=== PATIENT | male | born 1965 | race Caucasian/White ===

== ENCOUNTER → 2019-08-25 08:50 | Outpatient (CLI) | payer BC, SELFPAY ==
[2019-08-25 09:57] LABS: Alanine Aminotransferase 34 U/L (12-78); Albumin/Globulin Ratio 1.3 (1.1-1.8); Alkaline Phosphatase 92 U/L (46-116); Anion Gap 11.9 mEq/L (5-15); Aspartate Amino Transferase 17 U/L (15-37); Bilirubin,Total 0.5 mg/dL (0.2-1.0); Blood Urea Nitrogen 13 mg/dL (7-18); Calcium 9.2 mg/dL (8.5-10.1); Carbon Dioxide 30 mmol/L (21.0-32.0); Chloride 103 mmol/L (98-107); Chol/HDL Ratio 3.6 (1-3.5); Cholesterol 167 mg/dL (140-200); Creatinine,Serum 0.99 mg/dL (0.70-1.30); Estimated Glomerular Filt Rate 79 ml/min (>60); GFR (African American) 96 ML/MIN (>60); Globulin 3.2 gm/dl (1.3-3.2); Glucose 104 mg/dL (74-106); HDL Cholesterol 47 mg/dL (27-67); LDL Cholesterol 105 mg/dL (0-130); Potassium 4.9 mmoL/L (3.5-5.1); Sodium 140 mmol/L (136-145); Total Protein,Serum 7.2 gm/dL (6.4-8.2); Triglycerides 75 mg/dL (30-200); VLDL Cholesterol 15 mg/dL (0-40)
== END ==
PROVIDERS: Visit Provider Nurse Practitioner Family
DX: Z00.00 Encounter for general adult medical examination without abnormal findings (principal)
CPT/HCPCS: 36415; 80053; 80061

== ENCOUNTER 2020-07-30 20:49 | Observation (INO) | payer BC, SELFPAY ==
[2020-07-30] VITALS (7 sets, daily range): BP systolic 112–174; BP diastolic 60–89; PULSE 112–175; RESP 14–19; TEMP 36.8; O2SAT 96–99; BMI 32.3
--- NOTE | 2020-07-30 20:43 | ECG_ITS ---
APPROVED REPORT Exam: Resting ECG HR:160 bpm ECG Measurements Heart Rate 160 AXES QRSd 84 QRS 88 QT 272 T -57 QTc 443 Conclusion Atrial fibrillation with rapid ventricular response with premature ventricular or aberrantly conducted complexes T wave abnormality, consider inferior ischemia or digitalis effect Abnormal ECG Electronically signed by : Vernon Quick, 07/31/2020 19:45:43
--- NOTE | 2020-07-30 20:52 | XR_ITS ---
PROCEDURE: XR CHEST 2V CLINICAL HISTORY: palpitations Chest pain COMPARISON: CR CXR CHEST(2 VIEWS-NOT PORTABLE) from 08/25/2016 FINDINGS: The cardiomediastinal silhouette and pulmonary vascularity are within normal limits. The lungs are clear without infiltrates, suspicious nodules, or pleural effusions. Upper thoracic kyphosis with degenerative changes in the thoracic unchanged IMPRESSION: No acute findings. Dictated by: Anthony Hernandez MD 07/31/2020 06:11 Anthony Hernandez MD in [place] 07/31/2020 06:11
[2020-07-30 21:09] LABS: Basophils # 0.4 K/mm3 (0-0.2); Basophils % 2.9 % (0.1-2.0); Eosinophils # 0.1 K/mm3 (0.0-0.4); Eosinophils % 0.9 % (0.1-12.0); Hematocrit 47.5 % (42.0-52.0); Hemoglobin 16.8 g/dL (14.1-18.0); Lymphocytes # 3.2 K/mm3 (0.7-4.5); Lymphocytes % 22.5 % (10-50); Mean Corpuscular HGB Conc 35.5 g/dL (31.8-35.4); Mean Corpuscular Hemoglobin 29.2 pg (27.0-31.2); Mean Corpuscular Volume 82.3 fl (80-94); Mean Platelet Volume 10.5 fl (7.4-10.4); Monocytes # 0.8 K/mm3 (0.1-1.0); Monocytes % 5.7 % (1.7-9.3); Neutrophils # 9.6 K/mm3 (1.8-7.8); Platelet Count 388 K/mm3 (142-424); Red Blood Count 5.77 M/mm3 (4.60-6.20); White Blood Count 14.1 K/mm3 (4.8-10.8)
[2020-07-30 21:13] LABS: Chloride 100 mmol/L (98-107); Potassium 3.9 mmoL/L (3.5-5.1); Sodium 138 mmol/L (136-145)
[2020-07-30 21:16] LABS: Anion Gap 10.9 mEq/L (5-15); Blood Urea Nitrogen 17 mg/dl (9-20); Calcium 9.8 mg/dl (8.4-10.2); Carbon Dioxide 31 mmol/L (22.0-30.0); Creatinine Clearance Estimated 110 mL/min (50-200); Estimated Glomerular Filt Rate 78 ml/min (>60); GFR (African American) 95 ML/MIN (>60); Glucose 133 mg/dl (74-100)
--- NOTE | 2020-07-30 21:27 | HMH.EDARPALP ---
ED Disposition Clinical Impression: Atrial fibrillation with rapid ventricular response, Obesity (BMI 30.0-34.9) Disposition: Admitted As Inpatient Condition on Discharge: Good Referrals: Vernon Quick MD [Primary Care Provider] - - Critical Care Critical Care Time: No Attestation: On 07/30/20, the high probability of a clinically significant, sudden or life threatening deterioration of the following system(s) required my full and direct attention, intervention and personal management. The time I documented below is in addition to time spent performing reported procedures but includes the following listed in this critical care notation. Medical Decision Making - Medical Records Medical records reviewed: Yes: I reviewed the patient's medical records. - Rm Inquiry Pt receiving controlled substance: No Vital Signs: 07/30/20 20:51 07/30/20 21:00 07/30/20 21:30 Temperature 98.2 F Temperature Source Oral Pulse Rate [Apical] 160 H Pulse Rate [Left Radial] 132 H 175 H 160 H Respiratory Rate 18 18 19 Blood Pressure [Right Arm] 174/86 H 170/89 H 142/74 H Blood Pressure Mean [Right Arm] 115 116 96 Blood Pressure Source [Right Arm] Automatic Cuff Automatic Cuff Automatic Cuff Blood Pressure Position [Right Arm] Supine Supine Supine 02 Sat by Pulse Oximetry 99 97 98 Oxygen Delivery Method Room Air Room Air Room Air 07/30/20 22:00 Temperature Temperature Source Pulse Rate [Apical] Pulse Rate [Left Radial] 139 H Respiratory Rate 15 Blood Pressure [Right Arm] 112/77 Blood Pressure Mean [Right Arm] 88 Blood Pressure Source [Right Arm] Automatic Cuff Blood Pressure Position [Right Arm] Supine 02 Sat by Pulse Oximetry 98 Oxygen Delivery Method Room Air - Lab Data Lab results reviewed: Yes: I reviewed the patient's lab results. Lab Results 07/30/20 20:57: WBC 14.1 H, RBC 5.77, Hgb 16.8, Hct 47.5, MCV 82.3, MCH 29.2, MCHC 35.5 H, RDW 15.0, Plt Count 388, MPV 10.5 H, Neut % (Auto) 68.0, Lymph % (Auto) 22.5, [place] % (Auto) 5.7, Eos % (Auto) 0.9, Baso % (Auto) 2.9 H, Neut # (Auto) 9.6 H, Lymph # (Auto) 3.2, [place] # (Auto) 0.8, Eos # (Auto) 0.1, Baso # (Auto) 0.4 H 07/30/20 20:57: Sodium 138, Potassium 3.9, Chloride 100, Carbon Dioxide 31 H, Anion Gap 10.9, BUN 17, Creatinine 1.00, Estimated Creat Clear 110, Estimated GFR 78, Est GFR ( Amer) 95, Glucose 133 H, Calcium 9.8, Troponin I < 0.01, TSH 3.48, Thyroxine (T4) 9.8 Result diagrams: 07/30/20 20:57 07/30/20 20:57 Orders (Tests/Meds): ED MEDICATIONS Generic Name Dose Route Start Last Admin Trade Name Freq PRN Reason Stop Dose Admin Sodium Chloride 1,000 mls @ 999 mls/hr 07/30/20 21:00 07/30/20 21:03 Sod Chlor 0.9% 1000ml Bag IV 07/30/20 22:00 999 mls/hr .Q1H1M BOUBACAR Administration Diltiazem HCl 100 mg/ Sodium 100 mls @ 10 mls/hr 07/30/20 21:51 07/30/20 21:49 Chloride IV 08/29/20 21:50 10 mls/hr .Q10H BOUABCAR Administration Protocol Discontinued Medications Generic Name Dose Route Start Last Admin Trade Name Freq PRN Reason Stop Dose Admin Diltiazem HCl 10 mg 07/30/20 21:34 07/30/20 21:48 Diltiazem 25mg/5ml Vial IV 07/30/20 21:35 10 mg ONCE ONE Administration ORDERS Category Date Time Status Chest XR 2 view (NOT portable) [XR chest 2V] Stat Exams 07/30/20 20:52 Taken Covid-19 IgG/IgM ([facility]) Stat Lab 07/30/20 20:45 Received Troponin I Q3H Lab 07/30/20 23:58 Ordered Troponin I Q3H Lab 07/31/20 02:58 Ordered UA [Urinalysis and Microscopic] Stat Lab 07/30/20 22:26 Ordered UDS [Drug Screen,Urine] Stat Lab 07/30/20 22:26 Ordered - Radiology Data #1 Image(s): Chest Image Reviewed: Yes I reviewed the patient's radiology image Preliminary Findings: Normal/NAD - ECG Data Tracing #1 Arrhythmias present: afib Ischemic changes: non-specific ST-T wave changes - Physician Consults Physician Consulted: alin Reason -: Admission - CONOR Score for Non-Stemi Age of Patie
[2020-07-30 21:33] LABS: Troponin I < 0.01 ng/ml (0.00-0.034)
[2020-07-30 21:34] LABS: T4 (Thyroxine) 9.8 ug/dl (5.53-11.0)
[2020-07-30 21:48] LABS: Thyroid Stimulating Hormone 3.48 uIU/mL (0.465-4.68)
--- NOTE | 2020-07-30 22:38 | PC.NURSE ---
spoke with Dr. Quick, patient to be admitted
[2020-07-30 22:44] LABS: Coronavirus 19 IgG Antibody Negative (Negative); Coronavirus 19 IgM Antibody Negative (Negative)
[2020-07-30 22:44] LABS: Microscopic, Urine URINE MICROSCOPIC (MICROSCOPIC)
[2020-07-30 22:52] LABS: Appearance,Urine CLEAR (Clear); Bilirubin,Urine Negative (Negative); Blood, Urine TRACE-I (Negative); Color,Urine YELLOW (Yellow); Glucose,Urine (UA) Negative (Negative); Ketones,Urine Negative (Negative); Leukocyte Esterase,Urine Negative (Negative); Nitrate,Urine Negative (Negative); Protein,Urine Negative (Negative); Urobilinogen,Urine 0.2 EU/dl (0.2)
[2020-07-30 23:01] LABS: Amorphous Sediment,Urine 1+ /lpf; Bacteria,Urine 1+ /lpf; WBC,Urine Occasional #/hpf (0-3)
[2020-07-30 23:03] LABS: Amphetamine/Metha Screen,Urine Negative ng/ml (<1000)
[2020-07-30 23:04] LABS: Barbiturates Screen,Urine Negative ng/ml (<200); Benzodiazepines Screen,Urine Negative ng/ml (<200)
[2020-07-30 23:05] LABS: Cannabinoid Screen,Urine Negative ng/ml (<50); Cocaine Screen,Urine Negative ng/ml (<300)
[2020-07-30 23:06] LABS: Methadone Screen,Urine Negative ng/ml (<300)
[2020-07-30 23:07] LABS: Opiate Screen,Urine Negative ng/ml (<300)
[2020-07-30 23:08] LABS: Phencyclidine Screen,Urine Negative ng/ml (<25)
--- NOTE | 2020-07-30 23:54 | PC.NURSE ---
Cardizem increased to 15ml/hr at this time
[2020-07-31] VITALS (10 sets, daily range): BP systolic 95–163; BP diastolic 44–97; PULSE 66–97; RESP 13–18; TEMP 36.7–36.8; O2SAT 95–99; BMI 32.7
--- NOTE | 2020-07-31 00:22 | PC.NURSE ---
Lovenox inj confirmed by cristian in pharmacy
[2020-07-31 00:43] LABS: Troponin I < 0.01 ng/ml (0.00-0.034)
--- NOTE | 2020-07-31 00:43 | PC.NURSE ---
pt arrived to floor via wheelchair
--- NOTE | 2020-07-31 01:06 | ECG_ITS ---
APPROVED REPORT Exam: Resting ECG HR:65 bpm ECG Measurements Heart Rate 65 AXES MT 148 P 26 QRSd 72 QRS 52 QT 392 T 61 QTc 407 Conclusion Normal sinus rhythm Normal ECG Electronically signed by : Vernon Quick, 07/31/2020 19:44:43
--- NOTE | 2020-07-31 02:42 | PC.NURSE ---
He is A&Ox4. He reports pain in his elbow but no chest pain. He converted to NSR from afib. He denies SOA and weakness. He ambulated to the bathroom with steady gait. He continues on RA.
[2020-07-31 03:57] LABS: Troponin I < 0.01 ng/ml (0.00-0.034)
[2020-07-31 06:24] LABS: Basophils % 0.5 % (0.1-2.0); Eosinophils # 0.1 K/mm3 (0.0-0.4); Hematocrit 43.3 % (42.0-52.0); Lymphocytes # 2.6 K/mm3 (0.7-4.5); Lymphocytes % 30.5 % (10-50); Mean Corpuscular HGB Conc 32.3 g/dL (31.8-35.4); Mean Corpuscular Volume 86.6 fl (80-94); Mean Platelet Volume 7.5 fl (7.4-10.4); Monocytes # 0.7 K/mm3 (0.1-1.0); Monocytes % 7.6 % (1.7-9.3); Neutrophils # 5.2 K/mm3 (1.8-7.8); Neutrophils % 60.5 % (37.0-80.0); Platelet Count 285 K/mm3 (142-424); Red Cell Distribution Width 12.9 % (11.5-17.5); White Blood Count 8.6 K/mm3 (4.8-10.8)
[2020-07-31 06:41] LABS: Blood Urea Nitrogen 13 mg/dl (9-20); Calcium 8.9 mg/dl (8.4-10.2); Carbon Dioxide 28 mmol/L (22.0-30.0); Chloride 103 mmol/L (98-107); Chol/HDL Ratio 3.7 (1-3.5); Cholesterol 164 mg/dl (140-200); Creatinine Clearance Estimated 123 mL/min (50-200); Estimated Glomerular Filt Rate 88 ml/min (>60); GFR (African American) 107 ML/MIN (>60); Glucose 121 mg/dl (74-100); HDL Cholesterol 44 mg/dl (40-60); Magnesium 2.1 mg/dl (1.6-2.3); Sodium 138 mmol/L (136-145); Triglycerides 82 mg/dl (30-150); VLDL Cholesterol 16 mg/dL (0-40)
[2020-07-31 06:52] LABS: Direct LDL Cholesterol 96.36 mg/dL (100-129)
[2020-07-31 07:04] LABS: INR 1.08 (0.9-1.1); Prothrombin Time 11.9 seconds (9.4-11.8)
--- NOTE | 2020-07-31 07:54 | P.CONPHA_ITS ---
[facility] Pharmacy VTE Monitoring - Patient Demographics Admission date: 07/30/20 Report Date: 07/31/20 Time: 07:54 Allergies/Adverse Reactions: Patient Allergies guaifenesin [From MUCINEX] Allergy (Unknown, Verified 07/31/20 01:27) pseudoephedrine [From SUDAFED] Allergy (Unknown, Verified 07/31/20 01:27) Height: 1.68 m Weight: 91.881 kg Patient Problems: Current Active Problems Atrial fibrillation with rapid ventricular response (Acute) Obesity (BMI 30.0-34.9) (Acute) - VTE Risk Labs: VTE Related Lab Results Hgb 14.0 g/dL (14.1-18.0) L D 07/31/20 05:30 Hct 43.3 % (42.0-52.0) 07/31/20 05:30 Plt Count 285 K/mm3 (142-424) D 07/31/20 05:30 PT 11.9 seconds (9.4-11.8) H 07/31/20 05:30 INR 1.08 (0.9-1.1) 07/31/20 05:30 BUN 13 mg/dl (9-20) 07/31/20 05:30 Creatinine 0.90 mg/dl (0.66-1.25) 07/31/20 05:30 Estimated Creat Clear 123 mL/min (50-200) 07/31/20 05:30 VTE Score: 1 VTE Risk Level: Very Low Risk - Prophylaxis VTE Prophylaxis Ordered?: Yes Types of VTE Prophylaxis: TEDS Knee High Location of Applied Device: Bilateral Lower Extremeties
--- NOTE | 2020-07-31 08:00 | CA_ITS ---
APPROVED REPORT EXAM: Comprehensive 2D, Doppler, and color-flow Echocardiogram It Auditor: Johanna Zavaleta RVT Ht: 5 ft 6 in Wt: 200lbs BSA: 2.00 BP: 142/74 mmHg Indications: A-FIB,PALPS 2D Dimensions LVOT 1.77 cm (M/F) 1.5-2.5 M-Mode Dimensions RVDd 2.43 cm (0.9-2.6) LA Diam 3.62 cm (1.9-4.0) LVDd 4.33 cm (3.5-5.7) Ao Diam 2.61 cm (2.0-3.7) LVDs 2.36 cm (3.5-5.7) IVSd 1.18 cm (0.6-1.1) PWd 1.29 cm (0.6-1.1) EF (Teich) 77.10% FS 45.50% EDV (Teich) 84.40 mL ESV (Teich) 19.30 mL LV Diastology E Decel Time 150.00 (160-240 msec) E/A Ratio 1.6 MED E' 7.10 (< 7 cm/sec) E'/MED E' Ratio 12.58 (>14) LAT E' 6.60 (<10 cm/sec) E/LAT E' Ratio 13.53 (>14) Mitral Valve MV E Max Jay Jay. 89.00 (40-130 cm/s) MV A Velocity 57.00 (40-130 cm/s) E/A Ratio 1.57 MV Decel. Time 150.00 (160-240 ms) MV PHT 44.00 ms Pulmonary Valve PV Peak Velocity 112.00 (50-150 cm/s) Tricuspid Valve TR P. Velocity 280.00 cm/s Left Ventricle Left atrium is normal size, left ventricle is normal size, there is no concentric left ventricular hypertrophy, visually estimated ejection fraction 55% with no regional wall motion abnormality, diastolic parameters are within normal range. Right Ventricle Right atrium and right ventricle are normal size and contractility. Aortic Valve Aortic valve is minimally thickened and fibrosed, there is no aortic stenosis or aortic insufficiency. Mitral Valve Mitral valve is grossly normal, there is trace mitral regurgitation. Tricuspid Valve Tricuspid valve grossly normal, there is trace tricuspid regurgitation. Pulmonic Valve Pulmonic valve is poorly visualized. Great Vessels Aortic root is normal size. Pericardium No significant pericardial effusion noted. Conclusion 1. Normal left ventricular size, preserved left ventricular systolic function, visually estimated ejection fraction 55% with no regional wall motion abnormality, diastolic parameters are within normal range. 2. Trace mitral and tricuspid regurgitation. 3. No significant pericardial effusion noted. Electronically signed by : Nasim Smith, 07/31/2020 14:53:06
--- NOTE | 2020-07-31 08:30 | HMH.HPDC ---
General - General Admission date:: 07/31/20 Discharge date: 07/31/20 *Admission Date: 07/30/20 *Chief complaint: Rapid heart rate *History of present illness: 55-year-old white man with essentially negative past medical history who over the past 3 or 4 weeks has had spells of rapid heart rate and palpitations which resolved spontaneously. Yesterday evening he had another spell that lasted quite a long time and did not resolve spontaneously, came to the emergency department where he was found to be in atrial fibrillation with rapid ventricular response. Did not respond to initial Cardizem bolus and was placed on Cardizem drip and transferred to the special care unit for monitoring and further evaluation. Patient denies any recent chest pain, reduction in activity, denies leg swelling or syncopal episodes. Negative family history of cardiac disease. Denies alcohol use, denies stimulant use, OTC cold medicine use or other substance use. [facility] History I have reviewed the patient's past medical history: Yes Medical History: Denies:: Cancer, Diabetes Mellitus Type 1, Diabetes Mellitus Type 2, MRSA *Have you ever received a pneumonia vaccine?: No *Have you received a flu vaccine this season?: No Laterality Cases: Right: Other, Bilateral: Tonsillectomy Other Surgeries: Yes: Hernia Repair Amputation: No Fractures: No - *Social History Last grade of school completed: High school graduate Smoking Status: Never smoker Alcohol Intake: never *Occupational Status:: employed Housing: house Household Members: spouse *Travel in the last 8 weeks: None Family Hx:: Diabetes, Heart Attack, Hyperlipidemia, Hypertension, Stroke Review of Systems - Review of Systems Review of systems:: pertinent systems reviewed and negative unless documented below - *Neurologic Denies seizure-like activity Exam Vital signs and Labs for Last 24 Hours: Temp Pulse Resp BP Pulse Ox 98.0 F 66 14 95/56 L 97 07/31/20 04:00 07/31/20 06:00 07/31/20 04:00 07/31/20 06:00 07/31/20 06:00 Laboratory Results - last 24 hr 07/30/20 20:45: SARS-CoV-2 IgG Ab (Rapid) Negative, SARS-CoV-2 IgM Ab (Rapid) Negative 07/30/20 20:57: WBC 14.1 H, RBC 5.77, Hgb 16.8, Hct 47.5, MCV 82.3, MCH 29.2, MCHC 35.5 H, RDW 15.0, Plt Count 388, MPV 10.5 H, Neut % (Auto) 68.0, Lymph % (Auto) 22.5, [place] % (Auto) 5.7, Eos % (Auto) 0.9, Baso % (Auto) 2.9 H, Neut # (Auto) 9.6 H, Lymph # (Auto) 3.2, [place] # (Auto) 0.8, Eos # (Auto) 0.1, Baso # (Auto) 0.4 H 07/30/20 20:57: Sodium 138, Potassium 3.9, Chloride 100, Carbon Dioxide 31 H, Anion Gap 10.9, BUN 17, Creatinine 1.00, Estimated Creat Clear 110, Estimated GFR 78, Est GFR ( Amer) 95, Glucose 133 H, Calcium 9.8, Troponin I < 0.01, TSH 3.48, Thyroxine (T4) 9.8 07/30/20 22:40: Urine Color Yellow, Urine Appearance Clear, Urine pH 7.0, Ur Specific [place] 1.020, Urine Protein Negative, Urine Glucose (UA) Negative, Urine Ketones Negative, Urine Blood Trace-i, Urine Nitrate Negative, Urine Bilirubin Negative, Urine Urobilinogen 0.2, Ur Leukocyte Esterase Negative, Urine WBC Occasional, Amorphous Sediment 1+, Urine Bacteria 1+ 07/30/20 22:40: Urine Opiates Screen Negative, Urine Methadone Screen Negative, Ur Barbituates Screen Negative, Ur Phencyclidine Scrn Negative, Ur Amphetamines Screen Negative, U Benzodiazepines Scrn Negative, Urine Cocaine Screen Negative, U Marijuana (THC) Screen Negative 07/30/20 23:54: Troponin I < 0.01 07/31/20 03:00: Troponin I < 0.01 07/31/20 05:30: WBC 8.6 D, RBC 5.00, Hgb 14.0 L D, Hct 43.3, MCV 86.6, MCH 28.0, MCHC 32.3, RDW 12.9, Plt Count 285 D, MPV 7.5, Neut % (Auto) 60.5, Lymph % (Auto) 30.5, [place] % (Auto) 7.6, Eos % (Auto) 1.0, Baso % (Auto) 0.5, Neut # (Auto) 5.2, Lymph # (Auto) 2.6, [place] # (Auto) 0.7, Eos # (Auto) 0.1, Baso # (Auto) 0.0 07/31/20 05:30: PT 11.9 H, INR 1.08 07/31/20 05:30: Sodium 138, Potassium 4.0, Chloride 103, Carbon Dioxide 28, Anion Gap 11.0, BUN 13, Creatinine 0.90, Estimated Crea
--- NOTE | 2020-07-31 09:30 | PC.NURSE ---
30-day MCOT monitor placed on patient, Pt voices understanding of usage. RN aware.
== END 2020-07-31 10:18 | disposition home or self-care (01) ==
LOC: ER 22:45 → 2ND 07-31 08:34
PROVIDERS: Admitting Provider Internal Medicine Adolescent Medicine; Emergency Provider Emergency Medicine; PCP Internal Medicine Adolescent Medicine; Visit Provider Internal Medicine Adolescent Medicine
DX: I48.0 Paroxysmal atrial fibrillation (principal)
CPT/HCPCS: 36415; 71046; 80048; 80061; 80305; 81001; 83735; 84436; 84443; 84484; 85025; 85610; 86328; 93005; 93270; 93306; 96365; 96366; 96367; 96372; 96375; 99284; G0378

== ENCOUNTER → 2021-07-06 09:16 | Outpatient (CLI) | payer BC, SELFPAY | PROVIDERS: PCP Internal Medicine Adolescent Medicine; Visit Provider Nurse Practitioner | DX: Z20.822 Contact with and (suspected) exposure to COVID-19 (principal) | CPT/HCPCS: C9803; U0003; U0005 ==

== ENCOUNTER → 2021-07-09 09:19 | Outpatient (CLI) | payer BC, SELFPAY | PROVIDERS: PCP Internal Medicine Adolescent Medicine; Visit Provider Nurse Practitioner | DX: Z20.822 Contact with and (suspected) exposure to COVID-19 (principal) | CPT/HCPCS: C9803; U0003; U0005 ==

== ENCOUNTER → 2021-07-28 08:49 | Outpatient (CLI) | payer BC, SELFPAY | PROVIDERS: PCP Radiology Diagnostic Radiology; Visit Provider Nurse Practitioner | DX: U07.1 COVID-19 (principal) | CPT/HCPCS: C9803; U0003; U0005 ==

== ENCOUNTER → 2021-09-11 13:23 | Outpatient (CLI) | payer BC, SELFPAY ==
--- NOTE | 2021-09-11 13:26 | CA_ITS ---
APPROVED REPORT EXAM: Comprehensive 2D, Doppler, and color-flow Echocardiogram Paper Stripper: Sherry Wood RDCS Ht: 5 ft 6 in Wt: 200lbs BSA: 2.00 BP: 120/84 mmHg Indications: PAF REMOTE H/O ABLATION M-Mode Dimensions RVDd 2.50 cm (0.9-2.6) LA Diam 3.39 cm (1.9-4.0) LVDd 4.12 cm (3.5-5.7) Ao Diam 3.05 cm (2.0-3.7) LVDs 2.95 cm (3.5-5.7) IVSd 0.72 cm (0.6-1.1) PWd 0.83 cm (0.6-1.1) EF (Teich) 55.30% FS 28.40% EDV (Teich) 75.10 mL ESV (Teich) 33.60 mL LV Diastology E Decel Time 203.00 (160-240 msec) E/A Ratio 1.2 MED E' 7.80 (< 7 cm/sec) E'/MED E' Ratio 11.62 (>14) LAT E' 9.80 (<10 cm/sec) E/LAT E' Ratio 9.24 (>14) Mitral Valve MV E Max Jay Jay. 91.00 (40-130 cm/s) MV A Velocity 76.00 (40-130 cm/s) E/A Ratio 1.19 MV Decel. Time 203.00 (160-240 ms) MV PHT 60.00 ms Left Ventricle Left atrium is mildly enlarged, left ventricle is normal size, visually estimated ejection fraction 55% with no regional wall motion abnormality, diastolic parameters are within normal range. Right Ventricle Right atrium and right ventricle are normal size and contractility. Aortic Valve Aortic valve is minimally thickened and fibrosed, there is no aortic stenosis or aortic insufficiency. Mitral Valve Mitral valve grossly normal, there is trace mitral regurgitation. Tricuspid Valve Tricuspid grossly normal, there is trace tricuspid regurgitation, tricuspid regurgitation jet versus inadequate for calculation of the right ventricular systolic pressure. Pulmonic Valve Pulmonic valve is poorly visualized. Great Vessels Aortic root is normal size. Inferior vena cava normal size with normal inspiratory collapse. Pericardium No significant pericardial effusion noted. Conclusion 1. Normal left ventricular size, preserved left ventricular systolic function, visually estimated ejection fraction 55% with no obvious regional wall motion abnormality, diastolic parameters are within normal range. 2. Trace mitral and tricuspid regurgitation. 3. No significant pericardial effusion. 4. Inferior vena cava is normal size with normal inspiratory collapse. Electronically signed by : Nasim Smith MD 09/11/2021 14:43:33
== END ==
PROVIDERS: PCP Internal Medicine Adolescent Medicine; Visit Provider Internal Medicine Adolescent Medicine
DX: I48.0 Paroxysmal atrial fibrillation (principal)
CPT/HCPCS: 93306

== ENCOUNTER 2023-07-11 18:24 | Emergency (ER) | payer OTHER, SELFPAY ==
[2023-07-11 18:26] VITALS: BMI 32.3
[2023-07-11 18:40] VITALS: BP 165/82; PULSE 84; RESP 17; TEMP 36.8; O2SAT 99
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
--- NOTE | 2023-07-11 18:52 | PC.NURSE ---
TRAUMA ALERT CANCELLED AT THIS TIME PER DR MYRICK , PT GOING TO BE WORKED UP HERE REACTIVATE IF NEEDED
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
--- NOTE | 2023-07-11 18:58 | PC.NURSE ---
RAD at BS
[2023-07-11 19:06] LABS: Basophils % 0.2 % (0.1-2.0); Eosinophils # 0.1 K/mm3 (0.0-0.4); Eosinophils % 0.5 % (0.1-12.0); Hematocrit 46.2 % (42.0-52.0); Hemoglobin 16.1 g/dL (14.1-18.0); Lymphocytes % 14.5 % (10-50); Mean Corpuscular HGB Conc 34.8 g/dL (31.8-35.4); Mean Corpuscular Volume 86.1 fl (80-94); Mean Platelet Volume 6.6 fl (7.4-10.4); Monocytes # 0.4 K/mm3 (0.1-1.0); Monocytes % 3.1 % (1.7-9.3); Neutrophils % 81.7 % (37.0-80.0); Platelet Count 358 K/mm3 (142-424); Red Blood Count 5.37 M/mm3 (4.60-6.20); Red Cell Distribution Width 12.9 % (11.5-17.5); White Blood Count 13.4 K/mm3 (4.8-10.8)
--- NOTE | 2023-07-11 19:09 | PC.NURSE ---
Type & Screen drawn from IV line. Arti Johnson from lab present with this RN.
[2023-07-11 19:12] LABS: Activated Partial Thrombo Time 25.8 seconds (22.8-30.6); Alanine Aminotransferase 24 U/L (12-78); Albumin Level 4.8 g/dl (3.5-5.0); Albumin/Globulin Ratio 1.3 (1.1-1.8); Alkaline Phosphatase 117 U/L (38-126); Anion Gap 10.7 mEq/L (5-15); Aspartate Amino Transferase 32 U/L (17-59); Bilirubin,Total 0.5 mg/dl (0.2-1.3); Blood Urea Nitrogen 11 mg/dl (9-20); Calcium 8.8 mg/dl (8.4-10.2); Carbon Dioxide 28 mmol/L (22.0-30.0); Chloride 102 mmol/L (98-107); Estimated Glomerular Filt Rate 87 ml/min (>60); GFR (African American) 106 ML/MIN (>60); Globulin 3.7 g/dL (1.3-3.2); Glucose 106 mg/dl (74-100); INR 1.11 (0.9-1.1); Potassium 3.7 mmoL/L (3.5-5.1); Prothrombin Time 11.9 seconds (10.1-12.5); Sodium 137 mmol/L (136-145); Total Protein,Serum 8.5 g/dl (6.3-8.2)
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
[2023-07-11 21:04] VITALS: BP 152/88; PULSE 92; RESP 16; TEMP 36.6; O2SAT 99
== END 2023-07-11 21:06 | disposition home or self-care (01) ==
PROVIDERS: Emergency Provider Emergency Medicine; PCP Internal Medicine Adolescent Medicine
DX: S02.2XXA Fracture of nasal bones, initial encounter for closed fracture (principal); I48.91 Unspecified atrial fibrillation; Z79.01 Long term (current) use of anticoagulants; R51.9 Headache, unspecified; R07.89 Other chest pain; V58.1XXA Passenger in pick-up truck or van injured in noncollision transport accident in nontraffic accident, initial encounter
CPT/HCPCS: 70450; 70486; 70496; 70498; 71045; 71275; 72125; 72128; 72131; 72170; 74174; 80053; 85025; 85610; 85730; 86850; 99285; Q9967

== ENCOUNTER 2023-11-26 09:25 | Emergency (ER) | payer OTHER, SELFPAY ==
[2023-11-26 09:35] VITALS: BP 152/84; PULSE 78; RESP 19; TEMP 36.8; O2SAT 96; BMI 33.7
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
[2023-11-26 09:51] LABS: UTC Strep Screen (Rapid) Negative (Negative)
[2023-11-26 09:59] VITALS: BP 152/84; PULSE 78; RESP 19; TEMP 36.8; O2SAT 96
== END 2023-11-26 10:12 | disposition home or self-care (01) ==
PROVIDERS: Emergency Provider Nurse Practitioner Family; PCP Internal Medicine Adolescent Medicine
DX: J02.9 Acute pharyngitis, unspecified (principal); Z20.818 Contact with and (suspected) exposure to other bacterial communicable diseases
CPT/HCPCS: 87880; 99204; 99212; G0463

== ENCOUNTER 2024-07-22 08:26 | Emergency (ER) | payer BC, SELFPAY ==
[2024-07-22 09:12] VITALS: BP 159/69; PULSE 71; RESP 18; TEMP 37.1; O2SAT 96; BMI 34.5
--- NOTE | 2024-07-22 09:28 | ED_ITS ---
Discharge Plan Disposition Patient Disposition: Home, Self-Care Condition: Good Prescriptions Prescriptions: New prednisone 10 mg tablet 10 mg PO DIRECTED 9 Days Qty: 21 0RF Rx Instructions: Take 4 tablets daily for 3 days, then take 2 tablets daily for 3 days, then take 1 tablet daily for 3 days, then stop. acyclovir 800 mg tablet 800 mg PO 5XDAY 7 Days Qty: 35 0RF No Action flecainide 100 mg tablet 100 mg PO DAILY Patient Comments: TAKE 1 TABLET BY MOUTH TWICE A DAY diltiazem HCl 120 mg capsule,extended release 24hr 120 mg PO DAILY Patient Comments: TAKE 1 CAPSULE BY MOUTH TWICE A DAY Xarelto 20 mg tablet 1 mg PO DAILY Patient Comments: TAKE 1 TABLET BY MOUTH ONCE DAILY IN THE EVENING Referrals Follow up/Referrals: Vernon Quick MD [Primary Care Provider] - See instructions Activity Restrictions/Add. Instructions Additional Instructions/Restrictions: Drink plenty of fluids with medications Take tylenol or ibuprofen for pain or fever. Take the medications as directed. Follow up with your regular doctor. GO TO THE ER FOR ANY WORSENING SYMPTOMS Clinical Impressions Clinical Impression: Shingles Stand Alone Forms Stand Alone Forms: Work/School Release Instructions Patient Instructions: JIMMY Eubanks for Shingles Print Language Print Language: Syriac Discharge ED Provider: Rusty Calvin [facility] General Stated complaint: rash on top of head ba swelling in jaw Mode of Arrival: Ambulatory Source of Information: Patient Time Seen by Provider: 07/22/24 09:27 Description of Symptoms (Recalled from Triage Doc. by RN): LEFT SIDE OF HEAD AND FACE, SWELLING, FELLS ACHY AND CHILLED AT TIMES HEENT Symptoms (Recalled from RN notes): Yes Resp Symptoms (Recalled from RN notes): No Skin Symptoms (Recalled from RN notes): Yes MS Symptoms (Recalled from RN notes): No Functional Status (Recalled from RN notes): WNL Related Data Home Medications ?Medication ?Instructions ?Recorded ?Confirmed diltiazem HCl 120 mg 120 mg PO DAILY 11/26/23 07/22/24 capsule,extended release 24 hr flecainide 100 mg tablet 100 mg PO DAILY 11/26/23 07/22/24 rivaroxaban 20 mg tablet (Xarelto) 1 mg PO DAILY 11/26/23 07/22/24 Previous Rx's ?Medication ?Instructions ?Recorded acyclovir 800 mg tablet 800 mg PO 5XDAY 7 days #35 tabs 07/22/24 prednisone 10 mg tablet 10 mg PO DIRECTED 9 days #21 07/22/24 tabs Allergies Allergy/AdvReac Type Severity Reaction Status Date / Time guaifenesin (From MUCINEX) Allergy Unknown Verified 08/09/23 16:16 pseudoephedrine (From Allergy Unknown Verified 08/09/23 16:16 SUDAFED) Worker's Comp Is this a Worker's Comp case?: No [facility] Disclaimer: The information contained in this section may have been updated after the patient was seen, as this information can be updated by other users. Medical History (Updated 07/22/24 @ 09:47 by Rusty Calvin APRN) Hyperlipidemia Surgical History (Updated 11/26/23 @ 09:42 by Linda Werner RN) History of tonsillectomy Social History Smoking Status: Never smoker second hand exposure: No alcohol intake: never current occupational status: employed Travel in the last 8 weeks: None household members: spouse housing: house current occupational exposures/hazards: No caffeine: Yes Have you lived/traveled outside [place] in past 30 days?: No Contact w/someone who lives/traveled outside US past 30 days?: No Exposure to someone with infectious disease in past 14 days?: No Do you have a fever (greater than 100.4 F or 38 C)?: No Have you tested positive for COVID-19: No Exposed to someone with COVID-19 in past 14 days?: No Do you have a sore throat?: No Do you have a cough?: No Do you have any weakness?: No Do you have any diarrhea?: No Are you experiencing any unusual bleeding?: No Do you have any muscle aches/pain?: No Do you have any abdominal pain?: No Are you experiencing loss of taste or smell?: No ROS Obtained: Yes All systems reviewed & no additional complaints except as documented Constitutional Constitutional: Denies chills and Denies fever(s) Eyes Eyes: Denies eye discharge ENT Ears, Nose, Mouth, and Throat: Denies dizziness, Denies otalgia and Denies sore throat Cardiovascular Cardiovascular: Denies chest pain Respiratory Respiratory: Denies shortness of breath, Denies chest congestion, Denies cough, Denies stridor and Denies wheezing Gastrointestinal Gastrointestingal: Denies nausea or vomiting Musculoskeletal Musculoskeletal: Reports system reviewed and no additional complaints, except as documented and Denies arthralgias Integumentary/Breasts Skin/Breast: Reports as per HPI and Reports rash Neurologic Neurologic: Denies dizziness and Denies paresthesias Allergic/Immunologic Allergic/Immunologic: Denies wheezing Physical Exam General General appearance: alert and in no apparent distress Head Head exam: atraumatic, normocephalic and normal inspection Eye Eye exam: Present normal appearance, PERRL and EOMI ENT ENT exam: Present normal exam, normal oropharynx, mucous membranes moist, TM's normal bilaterally and normal external ear exam Neck Neck exam: Present normal inspection, full ROM and trachea midline; Absent meningismus or lymphadenopathy Chest Chest inspection: Present normal inspection and symmetric chest wall rise; Absent tenderness Respiratory Respiratory exam: Present normal lung sounds bilaterally; Absent respiratory distress Cardiovascular Cardiovascular exam: Present regular rate and normal rhythm; Absent JVD Abdominal Exam Abdominal exam: Present soft and normal bowel sounds; Absent distention, tenderness or guarding Extremities Exam Extremities exam: Present normal inspection, full ROM and normal capillary refill; Absent calf tenderness Back Exam Back exam: Present normal inspection; Absent tenderness Neurological Exam Neurological exam: Present alert and oriented X3 Psychiatric Psychiatric exam: Present normal affect and normal mood Skin Skin exam: Present rash Lymphatic Lymphatic Findings: no adenopathy Medical Decision Making Medical Records Medical records reviewed: No I reviewed the patient's medical records. Screening: Per USPSTF and CDC recommendations, given the prevalence of disease in our region, it is our hospital?s policy to screen for HIV and viral Hepatitis for all patients aged 18 and over and those with ongoing risk factors. Rm Inquiry Pt receiving controlled substance: No Vital Signs: 07/22/24 09:12 Temperature 98.7 F Temperature Source Oral Pulse Rate [Left Brachial] 71 Respiratory Rate 18 Blood Pressure [Left Arm] 159/69 H Blood Pressure Mean [Left Arm] 99 02 Sat by Pulse Oximetry 96
[2024-07-22 09:49] VITALS: BP 159/69; PULSE 71; RESP 18; TEMP 37.1
== END 2024-07-22 09:52 | disposition home or self-care (01) ==
PROVIDERS: Emergency Provider Nurse Practitioner Family; PCP Internal Medicine Adolescent Medicine
DX: B02.9 Zoster without complications (principal); R21 Rash and other nonspecific skin eruption; M79.10 Myalgia, unspecified site
CPT/HCPCS: 99212; G0381

== ENCOUNTER 2024-11-05 11:00 | Day surgery (SDC) | payer BC, SELFPAY ==
[2024-11-02 10:11] VITALS: BMI 32.9
[2024-11-05 12:05] VITALS: BP 141/72; PULSE 58; RESP 18; TEMP 36.1; O2SAT 100
[2024-11-05] MEDS: LACTATED RINGERS 1000ML 1,000 ML 50 ML IV (12:11)
--- NOTE | 2024-11-05 12:21 | P.PNANES_ITS ---
[facility] Disclaimer: The information contained in this section may have been updated after the patient was seen, as this information can be updated by other users. Medical History (Updated 11/05/24 @ 12:03 by Kylie Mchugh RN) Sleep apnea Atrial fibrillation Hyperlipidemia Surgical History (Updated 11/02/24 @ 10:10 by Lolita Nava RN) History of surgery on arm History of hernia repair History of tonsillectomy Family History (Updated 11/02/24 @ 10:10 by Lolita Nava RN) Other Coronary artery disease Diabetes Hypertension Social History Smoking Status: Never smoker second hand exposure: No alcohol intake: never substance use type: denies use current occupational status: employed Travel in the last 8 weeks: None household members: spouse housing: house current occupational exposures/hazards: No caffeine: No [facility] Anesthesia Checklist Patient Identification Patient Identification: Arm Band Structural Data Admitted From: Home Planned Operative Procedure/s: Colonoscopy Consent for Planned Operative Procedure(s) Verified: Yes Verified Documents: Surgical Consent and History and Physical NPO Status Verified Time NPO: 00:00 Additional verifications Anesthesia Reactions: No Airway Assessment Mallampati Score:: Class II C-Spine Mobility Assessed: Yes TMJ Mobility Assessed: Yes Dentition: Good Dentition Neurological Assessment Level of Consciousness: Awake, Alert and Appropriate Anesthesia Plan Anesthesia Risk discussed: Yes Anesthesia Plan: Verified ASA Class: III Anesthesia Type: MAC
[2024-11-05 13:01] VITALS: O2SAT 100
--- NOTE | 2024-11-05 13:03 | EXP.HP ---
History of Present Illness *Admission Date: 11/05/24 *Reason for visit:: Screening for colon cancer *History of present illness: Mr. Girard is a 59-year-old gentleman who is here for initial screening colonoscopy. The examination is deemed medically necessary for screening colonoscopy. The patient has been seen, interviewed and examined prior to the procedure by both myself and the anesthesia provider. [facility] Disclaimer: The information contained in this section may have been updated after the patient was seen, as this information can be updated by other users. Medical History (Updated 11/05/24 @ 13:05 by Luís Aparicio II, MD) Sleep apnea Atrial fibrillation Hyperlipidemia Surgical History (Updated 11/02/24 @ 10:10 by Lolita Nava RN) History of surgery on arm History of hernia repair History of tonsillectomy Family History (Updated 11/02/24 @ 10:10 by Lolita Nava RN) Other Coronary artery disease Diabetes Hypertension Social History (Updated 11/05/24 @ 12:21 by Theo Hlem CRNA) Smoking Status: Never smoker second hand exposure: No alcohol intake: never substance use type: denies use current occupational status: employed Travel in the last 8 weeks: None household members: spouse housing: house current occupational exposures/hazards: No caffeine: No Have you lived/traveled outside US in past 30 days?: No Contact w/someone who lives/traveled outside US past 30 days?: No Exposure to someone with infectious disease in past 14 days?: No Do you have a fever (greater than 100.4 F or 38 C)?: No Have you tested positive for COVID-19: No Exposed to someone with COVID-19 in past 14 days?: No Do you have a sore throat?: No Do you have a cough?: No Do you have any weakness?: No Do you have any diarrhea?: No Are you experiencing any unusual bleeding?: No Do you have any muscle aches/pain?: No Do you have any abdominal pain?: No Are you experiencing loss of taste or smell?: No Other Medical History Have you received the Flu Vaccine for this season: No Have you received the Pneumonia Vaccine: No Review of Systems Review of Systems Review of systems (narrative): Negative *Cardiovascular Comments: Negative *Gastrointestinal Comments: Negative *Genitourinary Comments: Negative *Musculoskeletal Comments: Negative *Neurologic Comments: Negative Meds Home Medications and Allergies Home Medications ?Medication ?Instructions ?Recorded ?Confirmed ?Type diltiazem HCl 120 mg 120 mg PO DAILY 11/26/23 11/05/24 History capsule,extended release 24 hr rivaroxaban 20 mg tablet (Xarelto) 1 mg PO DAILY 11/26/23 11/05/24 History flecainide 100 mg tablet 100 mg PO DAILY 11/02/24 11/05/24 History New Prescriptions to Start Prescriptions: Allergies Allergy/AdvReac Type Severity Reaction Status Date / Time guaifenesin (From MUCINEX) AdvReac Mild Other Verified 11/05/24 12:03 pseudoephedrine (From AdvReac Mild Other Verified 11/05/24 12:03 SUDAFED) Exam Data for Last 24 hours Vital signs and Labs for Last 24 Hours: Temp Pulse Resp BP Pulse Ox O2 Del Method O2 Flow Rate 97.0 F L 58 L 18 141/72 H 100 Nasal Cannula 5 11/05/24 12:05 11/05/24 12:05 11/05/24 12:05 11/05/24 12:05 11/05/24 12:05 11/05/24 13:01 11/05/24 13:01 I & O for Last 24 hours: Intake & Output 11/02/24 11/03/24 11/04/24 11/05/24 23:59 23:59 23:59 23:59 Weight 204 lb *Routine HEENT Exam Head: Present normocephalic Eye: Present EOMI and PERRL ENT: Present mucous membranes moist *Routine Neck Exam Neck: Present supple *Routine Respiratory Exam Respiratory: Present CTA bilaterally *Routine Cardiovascular Exam Cardiovascular: Present RRR *Routine Abdominal Exam Abdominal: Present soft and normoactive bowel sounds; Absent tenderness *Routine Rectal Exam Rectal:: deferred *Routine Genitalia Exam Genitalia:: deferred *Routine Extremities Exam Extremities: Absent cyanosis, clubbing or edema *Routine Skin Exam Skin: Present warm; Absent rash *Routine Neurological Exam Neurological: Present alert and oriented X3 Assessment and Plan *Assessment and plan (1) Screening for colon cancer: Status: Acute Category: Medical Code(s): Z12.11 - Encounter for screening for malignant neoplasm of colon (2) Family history of colon cancer: Status: Acute Category: Medical Code(s): Z80.0 - Family history of malignant neoplasm of digestive organs Plan A/P: 1. Screening for colon cancer is the preprocedural diagnosis. The patient also has family history (paternal grandfather with colon cancer in 60s and paternal uncle with colon cancer in 70s) the patient will be anesthetized/sedated using MAC sedation. The patient has been seen and examined. Cardiac and lung assessment prior to the examination is stable. Proceed with planned initial screening colonoscopy.
--- NOTE | 2024-11-05 13:17 | P.PCN_ITS ---
[facility] Procedure Note Date: 11/05/24 Time: 13:17 Procedure Note:: Colonoscopy Procedure Report: Colonoscopy Endoscopist: Luís Aparicio II, MD Referring physician: Vernon Quick M.D. Date of Procedure: November 05, 2024 Equipment: Olympus 190 variable stiffness pediatric colonoscope Sedation: MAC sedation Indication: Mr. Girard is a 59-year-old gentleman who is here for initial screening colonoscopy. He reports no abdominal pain, weight loss, change in his bowel habits or rectal bleeding. He does state that his paternal grandfather had colon cancer in his 60s and his paternal uncle had colon cancer in his 70s. Procedure: Prior to the procedure, a history and physical exam was performed, and patient's medications and allergies were reviewed. The risks, benefits and alternatives of the sedation and procedure were discussed with the patient. All questions were answered and informed consent was obtained. The patient was brought to the procedure room. Patient identification and proposed procedure were verified by the physician and the nurse. The patient was placed in a left lateral decubitus position and the scope was passed under direct vision. Throughout the procedure, the patient's blood pressure, pulse, and oxygen saturations were monitored continuously. The colonoscopy was accomplished without difficulty. The patient tolerated the procedure well. Findings: On digital rectal examination there was normal rectal tone. There were no external hemorrhoids. The prostate was 2+, smooth, soft, symmetric without nodules. The colonoscope was introduced through the anal canal to the rectum and advanced to the cecum. The ileocecal valve and appendiceal orifice were identified. The scope was advanced a short distance into the ileum which appeared grossly normal. The scope was then withdrawn into the colon. The cecum, ascending, transverse and descending colon and mucosa were grossly normal. There were very shallow mildly scattered diverticuli identified in part of the mid sigmoid colon (LEFT colon). The rectum itself was normal. Upon retroflexion within the rectum there were grade 2 internal hemorrhoids. The preparation was excellent throughout with [place] Preparation Score of 9. The cecal time was 12 minutes. Impression: 1. Very mild sigmoid diverticulosis 2. Grade 2 internal hemorrhoids Plan: The patient will not require surveillance colonoscopy again for 10 years by ACS guidelines. Those persons that constitute having a stronger family history of colorectal cancer are those with a first-degree relative (parent, sibling, or child) diagnosed with colon cancer when they were younger than 50, or if more than one first-degree relative is affected. It is in these persons, that we recommend surveillance colonoscopy every 5 years. Persons that have second- degree family members that are greater than 60 years of age at the time of their diagnosis are not deemed to be at greater risk because most colon cancers are sporadic (environmental and other factors) and are not hereditary. Only about 5 to 10 percent of colon cancer is hereditary. I would encourage psyllium bulking fiber supplementation on a maintenance basis.
[2024-11-05 13:20] VITALS: BP 113/56; PULSE 50; RESP 16; TEMP 36.1; O2SAT 98
[2024-11-05 13:30] VITALS: BP 108/54; PULSE 55; RESP 16; O2SAT 97
[2024-11-05 13:40] VITALS: BP 112/67; PULSE 56; RESP 16; O2SAT 98
[2024-11-05 13:50] VITALS: BP 114/71; PULSE 65; RESP 18; O2SAT 98
== END 2024-11-05 13:53 | disposition home or self-care (01) ==
PROVIDERS: PCP Internal Medicine Adolescent Medicine; Visit Provider Internal Medicine Gastroenterology
PROC: 0DJD8ZZ Inspection of Lower Intestinal Tract, Via Natural or Artificial Opening Endoscopic (ICD-10-PCS; CPT 45378; principal; 2024-11-05 12:30)
DX: K57.30 Diverticulosis of large intestine without perforation or abscess without bleeding (principal); K64.1 Second degree hemorrhoids; Z12.11 Encounter for screening for malignant neoplasm of colon; Z80.0 Family history of malignant neoplasm of digestive organs
CPT/HCPCS: 45378; J7120